=== PATIENT | male | born 1950 | race Caucasian/White ===

== ENCOUNTER 2017-07-24 05:07 | Emergency (ER) | payer OTHER, BC ==
[2017-07-24 05:29] VITALS: BP 159/84; PULSE 67; TEMP 97.8; BMI 23.6
[2017-07-24] MEDS ORDERED: KETOROLAC TROMETHAMINE 60 MG/2 ML VIAL IM ONE (05:38)
--- NOTE | 2017-07-24 05:40 | PDOC ---
History of Present Illness - General Chief Complaint: Pain Stated Complaint: PAIN, LT SHOULDER Time Seen by Provider: 07/24/17 05:36 History Source: Patient Exam Limitations: No Limitations - History of Present Illness Initial Comments: CHIEF COMPLAINT: 67 y/o afebrile male c/o continued left shoulder pain. HISTORY OF PRESENT ILLNESS: The patient was seen here 2 days ago with left shoulder pain and prescribed Flexeril and tramadol for pain. He states he then went to his PMD who told him not to take those medications, and prescribed a medrol dose pack instead, stating he has a pinched nerve and the steroids will help. The patient has had no relief from the pain. He states he has an appointment with an orthopedic doctor scheduled for 2 days from now but he can' t take the pain until then. Vital signs on arrival are within normal limits. REVIEW OF SYSTEMS: GENERAL/CONSTITUTIONAL: No fever/chills. No weakness. No weight change. MUSCULOSKELETAL: +left shoulder pain. No neck or back pain. SKIN: No rash or easy bruising. NEUROLOGIC: +tingling of left 4th and 5th digits. No headache, vertigo, loss of consciousness, or loss of sensation. PHYSICAL EXAM: VITAL_SIGNS: within normal limits GENERAL_APPEARANCE: alert, cooperative, mild obvious discomfort. Patient is sitting with his shoulders hunched because he states that eases the pain a little. MENTAL_STATUS: speech clear, oriented X 3, responds appropriately to questions. NEURO: motor intact and sensory intact in injured extremity. EXTREMITIES: Left shoulder with decreased ROM secondary to pain and bicep muscle spasm. No deformities. SKIN: warm, dry, good color. Past History - Past Medical History Allergies/Adverse Reactions: Allergies Allergy/AdvReac Type Severity Reaction Status Date / Time No Known Allergies Allergy Verified 07/24/17 05:25 Home Medications: Ambulatory Orders Amlodipine Besylate [Norvasc -] 10 mg PO DAILY 07/22/17 Metoprolol Succinate 25 mg PO ASDIR 07/22/17 Cyclobenzaprine HCl [Flexeril -] 5 mg PO BID #21 tablet 07/24/17 traMADol HCL [Ultram -] 50 mg PO Q8H #10 tablet MDD 3 07/24/17 COPD: No HTN: Yes - Suicide/Smoking/Psychosocial Hx Smoking History: Never smoked Have you smoked in the past 12 months: No Information on smoking cessation initiated: No Hx Alcohol Use: No Drug/Substance Use Hx: No Substance Use Type: None *Physical Exam - Vital Signs Last Vital Signs Temp Pulse Resp BP Pulse Ox 97.8 F 67 18 159/84 97 07/24/17 05:25 07/24/17 05:25 07/24/17 05:25 07/24/17 05:25 07/24/17 05:25 Medical Decision Making - Medical Decision Making A/P: 67 y/o male with left shoulder injury who has an appointment with the Orthopedic doctor scheduled for saturday. He cannot take the pain and is not currently taking anything except a medrol dose pack. Will give Toradol IM in the ER. 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 Pt instructed to keep his orthopedic appointment scheduled for saturday and return to the ER with any worsening or concerning symptoms. The patient verbalizes understanding of all instructions, has no further questions and is awaiting discharge. *DC/Admit/Observation/Transfer Diagnosis at time of Disposition: Left shoulder strain Qualifiers: Encounter type: subsequent encounter Qualified Code(s): S46.912D - Strain of unspecified muscle, fascia and tendon at shoulder and upper arm level, left arm , subsequent encounter - Discharge Dispostion Disposition: HOME Condition at time of disposition: Stable - Prescriptions Prescriptions: Cyclobenzaprine HCl [Flexeril -] 5 mg PO BID #21 tablet traMADol HCL [Ultram -] 50 mg PO Q8H #10 tablet MDD 3 - Referrals Referrals: Jarred Vázquez MD [Primary Care Provider] - - Patient Instructions Printed Discharge Instructions: DI for Shoulder Sprain, DI for Shoulder Pain Additional Instructions: Discharge Instructions: -2 prescriptions have been sent to your pharmacy for pain; please take as prescribed -Follow up with your doctor on Saturday -Return to the ER with any worsening or concerning symptoms - Post Discharge Activity
[2017-07-24] MEDS ORDERED: KETOROLAC TROMETHAMINE 60 MG/2 ML VIAL ONE (05:48)
== END 2017-07-24 06:24 | disposition home or self-care (01) ==
LOC: JER 05:07
PROC: 3E0233Z Introduction of Anti-inflammatory into Muscle, Percutaneous Approach (ICD-10-PCS; principal; 2017-07-24)
DX: S46.912A Strain of unspecified muscle, fascia and tendon at shoulder and upper arm level, left arm, initial encounter (principal); X58.XXXA Exposure to other specified factors, initial encounter; Y93.89 Activity, other specified; Y92.9 Unspecified place or not applicable; I10 Essential (primary) hypertension
CPT/HCPCS: 96372; 99281-25

== ENCOUNTER 2017-07-25 03:49 | Emergency (ER) | payer OTHER, BC ==
--- NOTE | 2017-07-25 04:49 | PDOC ---
History of Present Illness - General History Source: Patient <Reynaldo Masters - Last Filed: 07/25/17 04:56> - General History Source: Patient Exam Limitations: No Limitations - History of Present Illness Initial Comments: 07/25/17 05:03 The patient is a 67 year old male who presents to the emergency department complaining of continuing pain in left shoulder which began approximately 6 weeks ago. The patient was recently discharged (07/24) seeking medication for increasing pain in left shoulder. The patient was seen on (07/22) with left shoulder pain and prescribed Flexeril and tramadol for pain. The patient states he has very little relief with medications and claims the medicine has not been working. Of note, the patient has not gone to his PCP nor an clinical account specialist to have prescriptions renewed or changed as he says he has an appointment with an orthopedic doctor scheduled this Saturday. He states the pain is still unbearable. He denies any recent trauma. The patient denies chest pain, shortness of breath, headache, and dizziness. Denies fevers, chills, nausea, vomiting, diarrhea, and constipation. Allergies: NKA <Neeta Saldana - Last Filed: 07/25/17 05:04> - General Chief Complaint: Pain, Acute Stated Complaint: SHOULDER/ELBOW PAIN Time Seen by Provider: 07/25/17 04:41 Past History - Past Medical History COPD: No HTN: Yes - Suicide/Smoking/Psychosocial Hx Smoking History: Never smoked Have you smoked in the past 12 months: No Hx Alcohol Use: No Drug/Substance Use Hx: No Substance Use Type: None <Reynaldo Masters - Last Filed: 07/25/17 04:56> <Neeta Saldana - Last Filed: 07/25/17 05:04> - Past Medical History Allergies/Adverse Reactions: Allergies Allergy/AdvReac Type Severity Reaction Status Date / Time No Known Allergies Allergy Verified 07/25/17 04:51 Home Medications: Ambulatory Orders Amlodipine Besylate [Norvasc -] 10 mg PO DAILY 07/22/17 Metoprolol Succinate 25 mg PO ASDIR 07/22/17 Cyclobenzaprine HCl [Flexeril -] 5 mg PO BID #21 tablet 07/24/17 traMADol HCL [Ultram -] 50 mg PO Q8H #10 tablet MDD 3 07/24/17 Tramadol HCl [Tramadol HCl ER] 100 mg PO ONCE #5 tab.er.24h MDD 1 07/25/17 Review of Systems - Review of Systems Able to Perform ROS?: Yes Comments:: GENERAL/CONSTITUTIONAL: No fever/chills. No weakness. No weight change. MUSCULOSKELETAL: +left shoulder pain. No neck or back pain. SKIN: No rash or easy bruising. NEUROLOGIC: +tingling of left 4th and 5th digits. No headache, vertigo, loss of consciousness, or loss of sensation. <Neeta Saldana - Last Filed: 07/25/17 05:04> *Physical Exam - Vital Signs Last Vital Signs Temp Pulse Resp BP Pulse Ox 98.0 F 72 20 167/99 99 07/25/17 04:44 07/25/17 04:44 07/25/17 04:44 07/25/17 04:44 07/25/17 04:44 - Physical Exam Comments: VITAL_SIGNS: within normal limits GENERAL_APPEARANCE: alert, cooperative, mild obvious discomfort. Patient is sitting with his shoulders hunched because he states that eases the pain a little. MENTAL_STATUS: speech clear, oriented X 3, responds appropriately to questions. NEURO: motor intact and sensory intact in injured extremity. EXTREMITIES: Left shoulder with decreased ROM secondary to pain and bicep muscle spasm. No deformities. SKIN: warm, dry, good color. <Neeta Saldana - Last Filed: 07/25/17 05:04> Medical Decision Making - Medical Decision Making 07/25/17 04:56 Dr. Masters: The scribe's documentation has been prepared under my direction and personally reviewed by me in its entirery. I confirm that the note above accurately reflects all work, treatment, procedures, and medical decision making performed by me. <Reynaldo Masters - Last Filed: 07/25/17 04:56> *DC/Admit/Observation/Transfer - Discharge Dispostion Admit: No <Reynaldo Masters - Last Filed: 07/25/17 04:56> - Attestations Scribe Attestion: Documentation prepared by Neeta Saldana, acting as medical clerk for Reynaldo Masters MD. <Neeta Saldana - Last Filed: 04/19/18 05:04> Diagnosis at time of Disposition: Left shoulder strain - Discharge Dispostion Condition at time of disposition: Stable - Prescriptions Prescriptions: Tramadol HCl [Tramadol HCl ER] 100 mg PO ONCE #5 tab.er.24h MDD 1 - Referrals Referrals: ON STAFF,NOT [Non Staff, Medical] - Michael Downing MD [Staff Physician] - - Patient Instructions - Post Discharge Activity
[2017-07-25] MEDS ORDERED: KETOROLAC TROMETHAMINE 60 MG/2 ML VIAL IM ONE (04:50)
[2017-07-25 04:52] VITALS: BP 167/99; PULSE 72; TEMP 98; BMI 23.6
[2017-07-25] MEDS ORDERED: KETOROLAC TROMETHAMINE 60 MG/2 ML VIAL ONE (04:56)
== END 2017-07-25 05:36 | disposition home or self-care (01) ==
LOC: SUPCPDRO 03:49 → JER 03:49
PROC: 3E0233Z Introduction of Anti-inflammatory into Muscle, Percutaneous Approach (ICD-10-PCS; principal; 2017-07-25)
DX: S46.812A Strain of other muscles, fascia and tendons at shoulder and upper arm level, left arm, initial encounter (principal); X58.XXXA Exposure to other specified factors, initial encounter; Y93.89 Activity, other specified; Y92.89 Other specified places as the place of occurrence of the external cause; Y99.8 Other external cause status
CPT/HCPCS: 99283-25

== ENCOUNTER 2023-02-21 04:29 | Day surgery (SDC) | payer OTHER, BC ==
[2023-02-19 11:49] VITALS: BMI 24.0
[2023-02-21 11:02] VITALS: TEMP 97.5
[2023-02-21 11:31] VITALS: BP 118/66; PULSE 74; RESP 16
== END 2023-02-21 11:36 | disposition home or self-care (01) ==
LOC: JASU-ENDO 04:29
PROVIDERS: ATTEND Internal Medicine Gastroenterology
PROC: 0DJD8ZZ Inspection of Lower Intestinal Tract, Via Natural or Artificial Opening Endoscopic (ICD-10-PCS; principal; 2023-02-21 10:15)
DX: Z12.11 Encounter for screening for malignant neoplasm of colon (principal); K64.8 Other hemorrhoids; Z86.010 Personal history of colon polyps